=== PATIENT | female | born 1965 | race Caucasian/White ===

== ENCOUNTER 2017-09-02 18:13 | Emergency (ER) | payer BC ==
[2017-09-02] MEDS ORDERED: Dextrose 50% Abboject 50 ML SYRINGE ONE (18:21)
[2017-09-02] MEDS ORDERED: Naloxone HCl 2 mg/2 ml Syringe ONE (18:24)
[2017-09-02] MEDS ORDERED: Succinylcholine Chloride 20 MG/ML 10 ml SYRINGE FS ONE (18:28)
[2017-09-02] MEDS ORDERED: EPINEPHrine 1 MG, Admixture Fee 1 EACH in Dextrose 5% in Water 250 ML IVPB SCH ×3 (19:00)
[2017-09-02 19:21] LABS: Mechanical Tidal Volume 350 ml; Mode SIMV; Pressure Support 10 cmH2O; Sodium 150 mmol/L (135-148); Vent YES
[2017-09-02] MEDS ORDERED: Norepinephrine 8 MG/0.9% NS 250 ML ONE (19:26)
[2017-09-02 19:29] LABS: ALT (SGPT) 29 U/L (8-55); AST (SGOT) 124 U/L (5-34); Alkaline Phosphatase 290 U/L (40-150); BUN (Urea Nitrogen) 10 mg/dL (7.0-18.7); Calc. Creatinine Clearance 0 mL/min (70-130); Calcium 8.2 mg/dL (7.8-10.44); Chloride 113 mmol/L (98-107); Estimated GFR-MDRD 33; Globulin 1.8 g/dL (2.4-3.5); Protein, Total 2.9 g/dL (6.0-8.3)
[2017-09-02 19:39] LABS: Carbon Dioxide Less than 8 mmol/L (22-29)
[2017-09-02] MEDS ORDERED: Piperacillin/Tazobactam 3.375 GM in Sodium Chloride 0.9% 100 ML IVPB SCH (19:45)
--- NOTE | 2017-09-02 19:47 | RAD ---
CHEST ONE VIEW: History: Altered mental status. Chest pain. FINDINGS: Cardiothymic silhouette is midline. Pulmonary vasculature is engorged. There is dense consolidation of the right upper lobe. Patchy dense bilateral perihilar infiltrates are also evident. Tip of the e ndotracheal catheter overlies the thoracic inlet. Nasogastric tube descends the stomach. Tip of a ri ght internal jugular central venous catheter overlies the right atrium. [employer] football coach leads overli e the chest. IMPRESSION: 1. Right upper lobe pneumonia with dense bilateral perihilar infiltrates. 2. Lines and tubes are in good position as detailed above. POS: [facility]
[2017-09-02] MEDS ORDERED: Potassium Chloride 20 MEQ TAB ONE (19:55)
[2017-09-02] MEDS ORDERED: Naloxone HCl 0.4 mg/ml Vial ONE (20:00)
[2017-09-02] MEDS ORDERED: Dextrose 25% Abboject 10 ML SYRINGE ONE (20:00)
[2017-09-02] MEDS ORDERED: Calcium Chloride 1 GM/10 ML Abboject SYRINGE ONE (20:00)
[2017-09-02] MEDS ORDERED: Lidocaine 2% PF 100 mg/5 ml Syringe ONE (20:00)
[2017-09-02] MEDS ORDERED: Atropine Sulfate 1 mg/10 ml Syringe ONE (20:00)
[2017-09-02] MEDS ORDERED: DOPamine/D5W 400 mg/250 ml PREMIX ONE (20:00)
[2017-09-02] MEDS ORDERED: Magnesium 5 GM/10 ML Abboject SYRINGE ONE (20:00)
[2017-09-02] MEDS ORDERED: Adenosine 6 MG/2 ML VIAL ONE (20:00)
[2017-09-02] MEDS ORDERED: EPINEPHrine 1 MG/10 ML Abboject SYRINGE ONE (20:00)
[2017-09-02] MEDS ORDERED: Potassium Chloride 40 MEQ in Sodium Chloride 0.9% 500 ML IVPB SCH (20:00)
[2017-09-02] MEDS ORDERED: Lidocaine 2 gm/D5W 500ML PREMIX BAG ONE (20:00)
[2017-09-02 20:07] LABS: Bilirubin Small (Negative); Blood, Urine Large (Negative); Glucose, Urine (Dipstick) Negative (Negative); Ketone, Urine Trace mg/dL (Negative); Nitrite Negative (Negative); Protein, Urine (Dipstick) 30 mg/dL (Neg-Trace)
[2017-09-02 20:09] LABS: Lactic Acid - Sepsis 19.5 mmol/L (0.5-2.2)
[2017-09-02 20:11] LABS: Anisocytosis SLIGHT = 6-15 cells (100X) (0-5/hpf); Band 1 % (5-11); Macrocytosis SLIGHT = 6-15 cells (100X) (0-5/hpf); Mean Platelet Volume 8.8 fL (7.4-10.4); Neutrophil 73 % (42-75); Nucleated RBC 15 % (0); Red Blood Cell (RBC) Count 1.07 mill/uL (4.20-5.40)
--- NOTE | 2017-09-03 05:44 | CON ---
DATE OF CONSULTATION: 09/02/2017 CHIEF COMPLAINT: Severe anemia. HISTORY OF PRESENT ILLNESS: Ms. Salmeron is a 51-year-old woman who was found unresponsive by her fa zuly. EMS was called and patient underwent cardiac arrest and CPR in the field. She was brought to the emergency room and pulse was regained. She was found to have severe anemia. She was given jacob ine and blood transfusion. She coded again and pulse was regained and she coded the third time and again the pulse and blood pressure were returned. She is noted to have some red blood from the OG t ube without obvious black or red stool. She also has some red blood oozing from her nose. She appa rently has been lethargic over the last couple of days; however, she goes through periods where she gets depressed and was lethargic every so often, so the family did not think too much of this origin ally. She is currently intubated and not responsive. PAST MEDICAL HISTORY: Acid reflux. PAST SURGICAL HISTORY: Not known at this time FAMILY HISTORY: Unknown. SOCIAL HISTORY: She drinks a couple of shots and a couple of beers per day. She smokes but does no t do drugs. MEDICATIONS: She does not take NSAIDs. She has taken some Ciara-Avery Gummies for reflux lately. REVIEW OF SYSTEMS: Unobtainable due to the patient's mental status. PHYSICAL EXAMINATION: VITAL SIGNS: Pulse is in the 70s, blood pressure in the 109/50s range. She was hypothermic initial ly. GENERAL: She is diffusely, severely mottled in her extremities and abdomen. Lips and face are ibrahima atous. She has an oral gastric tube and an endotracheal tube in place. HEART: Regular rate and rhythm. ABDOMEN: Has no bowel sounds. She is distended. EXTREMITIES: No lower extremity edema. LABORATORY DATA: White blood cell count 8.0, hemoglobin 3.5, platelets 49,000. Creatinine 1.66, so dium 148, potassium 4.0, chloride 113, carbon dioxide less than 8, BUN 10, lactic acid 19.5, bilirub in 1.0, AST 124, ALT 29, alkaline phosphatase 290, albumin 1.1. IMPRESSION: 1. Severe anemia. She has red blood in the OG tube and upper gastrointestinal bleed is suspected. She does apparently have some diffuse mucosal bleeding. She has thrombocytopenia. Her coags are n ot yet known. Her platelets were normal back in October, it is unlikely that she developed portal h ypertension with that quickly drop in her platelets over that time. She has been taking antacids. She could have peptic ulcer with acute bleed. She could have a variceal bleed. 2. Cardiac arrest, now requiring CPR at 3 different times. She is diffusely mottled. Her creatini ne is elevated. She is on pressors. Her lactate is extremely elevated. It is likely that she will not survive the cardiac arrest and subsequent ischemic results. She could have ischemic bowel. Asher calhoun could have a perforated ulcer given the abdominal distention and lack of bowel sounds. When she i s stable then further imaging can be performed. RECOMMENDATIONS: 1. Blood transfusion and volume resuscitation. 2. Proton pump inhibitor. 3. Broad spectrum antibiotics. 4. Check coags. 5. Endoscopy could be considered pending hemodynamic stabilization. 6. Her albumin is noted to be extremely low. Reason for that is not immediately apparent.
== END 2017-09-02 21:44 | disposition expired ==
LOC: ERS 18:13
DX: A41.9 Sepsis, unspecified organism (principal); K92.2 Gastrointestinal hemorrhage, unspecified; I10 Essential (primary) hypertension; F32.9 Major depressive disorder, single episode, unspecified; F17.210 Nicotine dependence, cigarettes, uncomplicated
CPT/HCPCS: 31500; 36415; 36416; 36430; 36556; 51701; 71010; 80053; 81003; 81015; 82274; 82533; 82805; 83605; 85025; 85060; 86850; 86900; 86901; 87040; 87077; 87086; 87186; 92950; 93005; 94002; 96361; 96365; 96366; 96368; 96375; 96376; 99292; J0153; J0171; J0461; J1265; J2001; J2310; J2543; J3370; J3475; J3480; J7050; J7070; P9016; P9035; P9048; P9059